=== PATIENT | female | born 1980 | race Caucasian/White ===

== ENCOUNTER → 2016-09-26 | Outpatient (CLI) | payer BC ==
[~2016-09-26] MED LIST: CPXI; GADAVIST IV PRN; OMEG12006 PO; SYN125 PO
--- NOTE | 2016-09-26 18:56 | DIAGNOSTIC IMAGING REPORT ---
BRAIN COMBO FOR MS CLINICAL HISTORY: Multiple sclerosis. COMPARISON STUDY: MRI of the brain April 12, 2016. TECHNIQUE: Utilizing a 1.5 Conchita magnet, multiplanar, multi echo imaging of the brain was performed pre and postcontrast administration according to the multiple sclerosis protocol. Injection of 7.5 cc of Gadavist IV was uneventful. FINDINGS: There are no areas of restricted diffusion. No acute intracranial hemorrhage, midline shift or mass effect is present. Brain volume is normal. Ventricular system is normal. The basilar cisterns are patent. There are no extra-axial collections. Flow-voids for the major intracranial vessels are present. Numerous subcortical and periventricular white matter T2 hyperintense foci are similar to MRI of April 12, 2016. A small plaque within the right parietooccipital region is less conspicuous. No new plaques are identified. There is no enhancement to suggest active demyelination. Calvarial signal is maintained. Orbits are unremarkable. IMPRESSION: 1. No acute intracranial findings. 2. Numerous T2 hyperintense foci consistent with demyelination in the setting of multiple sclerosis. No new plaques identified. No evidence for active demyelination. Slight decrease in conspicuity of a small plaque within the right parietooccipital region. Otherwise, no change since prior exam. Electronically signed by: Jl Pugh M.D. 09/26/2016 6:54 PM Dictated Date/Time: 09/26/2016 6:47 PM
--- NOTE | 2016-09-26 19:54 | DIAGNOSTIC IMAGING REPORT ---
MRI OF THE CERVICAL SPINE WITH AND WITHOUT CONTRAST CLINICAL HISTORY: Multiple sclerosis. COMPARISON: MRI of the cervical spine April 12, 2016 TECHNIQUE: Utilizing a 1.5 Conchita magnet and dedicated coil, multiplanar, multiecho imaging of the cervical spine was performed before and after intravenous administration of 7.5 of Gadavist. FINDINGS: Alignment of the cervical spine is anatomic. Vertebral body heights are maintained. No marrow replacement is present. Paravertebral soft tissues are unremarkable. There is no intracanalicular mass or fluid collection. No abnormal enhancement is identified within the cervical canal. Multiple T2 hyperintense foci within the cervical cord are again noted. These are similar to MRI of April 12, 2016. The largest is a 9 mm T2 hyperintense focus within the cord at the C5 level. No new foci of signal abnormality are present. The central canal and neural foramen are patent. IMPRESSION: No significant change in areas of demyelination within the cervical cord since MRI of April 12, 2016. No new plaques. No evidence of active demyelination. Electronically signed by: Jl Pugh M.D. 09/26/2016 7:51 PM Dictated Date/Time: 09/26/2016 7:46 PM
== END | disposition home or self-care (01) ==
LOC: C.MRI 15:49
PROVIDERS: ATTEND Psychiatry & Neurology Neurology
DX: G35 Multiple sclerosis (principal)

== ENCOUNTER → 2017-09-26 | Outpatient (CLI) | payer OTHER ==
--- NOTE | 2017-09-26 11:57 | DIAGNOSTIC IMAGING REPORT ---
Brain MRI WITH AND WITHOUT CONTRAST HISTORY: G35 Multiple sclerosis [id number] TECHNIQUE: Multiplanar multisequence MRI of the brain was performed both before and after the intravenous administration of contrast. COMPARISON STUDY: Brain MRI 09/26/2016. FINDINGS: There is no mass, hematoma, midline shift, acute infarct. Multiple scattered white matter plaques seen within the ventricular subcortical white matter of the supratentorial brain are again noted. There is also paratracheal white matter plaque at the fourth ventricle, unchanged. There is a new 9 mm white matter plaques seen within the right inferior frontal lobe on coronal image 9. No abnormal enhancement to suggest active demyelination. The paranasal sinuses and mastoid air cells are clear. The major vascular flow voids at the skull base are well-maintained. The orbits are unremarkable. IMPRESSION: There is a new 9 mm white matter plaque seen within the right inferior frontal lobe. Otherwise, the remaining scattered white matter plaques are not significantly changed. No evidence for active demyelination. Electronically signed by: Alxeander Mccracken M.D. 09/26/2017 11:55 AM Dictated Date/Time: 09/26/2017 11:49 AM
--- NOTE | 2017-09-26 12:20 | DIAGNOSTIC IMAGING REPORT ---
MRI OF THE CERVICAL SPINE COMBO CLINICAL HISTORY: Multiple sclerosis. COMPARISON STUDY: MRI of the cervical spine dated 09/26/2016. TECHNIQUE: MRI of the cervical spine is performed utilizing various T1 and T2-weighted sequences in the axial and sagittal planes. Contrast-enhanced sequences are acquired following the IV administration of 7.7 cc of Gadavist. FINDINGS: Cervical spine: Vertebral body height and alignment are maintained throughout the cervical spine. Normal marrow signal intensity is preserved throughout the visualized bony structures. No destructive bony lesion is seen. The atlantodental articulation appears maintained. The spinous processes appear intact. There is straightening of the cervical lordosis. Intervertebral discs: Normal in height and signal intensity. Spinal cord: The cervical spinal cord is normal in morphology. Again seen is a 10 mm T2 hyperintense lesion within the cord at the level of C5. Small T2 hyperintense lesions are also suspected at the craniocervical junction, the body of C2, the body of C3, and at the level of the body of C6 measuring 6 mm. These have not significantly changed from 09/26/2016. A new lesion is questioned at the level of C6 measuring 7 mm. This is best seen on sagittal STIR image #9. No abnormal enhancement is identified on the postcontrast images. C2-C3: Unremarkable. C3-C4: Unremarkable. C4-C5: Unremarkable. C5-C6: Unremarkable. C6-C7: Minimal facet arthropathy is of no consequence. The central canal and neural foramina are patent. C7-T1: Unremarkable. Soft tissues: The prevertebral and paraspinous soft tissues are normal in appearance. Brain parenchyma: Partially visualized brain parenchyma at the skull base is otherwise normal in appearance. IMPRESSION: 1. Question a new 6 mm focus of demyelination in the cervical cord at level of C6. There is no corresponding abnormal enhancement. 2. Otherwise no significant change in the appearance of previously characterized T2 hyperintense throughout the cervical spinal cord as compared to 09/26/2016. No abnormal enhancement is identified to suggest active demyelination. 3. There is no disc herniation, central canal stenosis, or neural foraminal narrowing seen throughout the cervical spine. 4. No destructive bony process is suspected. Electronically signed by: Paco Quintanilla M.D. 09/26/2017 12:19 PM Dictated Date/Time: 09/26/2017 12:07 PM
== END | disposition home or self-care (01) ==
LOC: C.MRIBC 09:45
PROVIDERS: ATTEND Psychiatry & Neurology Neurology
DX: G35 Multiple sclerosis (principal)